=== PATIENT | female | born 1970 | race African-American/Black ===

== ENCOUNTER 2016-10-15 13:17 | Emergency (ER) | payer OTHER ==
[~2016-10-15] VITALS: Ht 157.5 cm; Wt 70.0 kg
[~2016-10-15 13:17] MED LIST: Z.0.NO CURRENT MEDS
[2016-10-15 14:04] VITALS: BP 128/71; PULSE 65; RESP 17; TEMP 98; O2SAT 100
[2016-10-15] MEDS ORDERED: SODIUM CHLORIDE 0.9% FLUSH 10 ML FLUSH IVF PRN (15:00)
--- NOTE | 2016-10-15 15:08 | PD ---
HPI Chief Complaint: chest pain Time Seen by Provider: 15:05 Travel History International Travel<30 days: No Contact w/Intl Traveler<30days: No History of Present Illness HPI Patient comes in complaining of right-sided chest pain that began after snorting and smoking cocaine along with taking Lortabs yesterday morning. Patient states she has done these drugs in the past, but has never had chest pain with it. Patient states pain is been constant since yesterday denies any radiation of pain. Denies anything making the pain better or worse. Denies any shortness of breath, nausea, abdominal pain, change in symptoms with eating , vomiting, back pain, numbness or tingling anywhere, headache,or loss change in bowel or bladder. [facility] Past Medical History Medical History: Denies Significant Hx Social History Alcohol Use: Yes (BEER EVERY WEEKEND) Tobacco Use: Yes (1/2 PACK DAILY X 13 YEARS) Substance Use: Yes (cocaine) Allergies-Medications (Allergen,Severity, Reaction): Coded Allergies: No Known Allergies (Verified , 08/06/15) Reported Meds & Prescriptions Reported Meds & Active Scripts Active Reported No Current Meds (Miscellaneous Medication) [facility] Review of Systems Except as stated in HPI: all other systems reviewed are Neg Physical Exam Narrative GENERAL: Well-developed, overly nourished, in no acute distress, and non-ill appearing. SKIN: Focused skin assessment warm and dry. HEAD: Atraumatic. Normocephalic. EYES: Pupils equal and round. EOMI. No scleral icterus. No injection or drainage. ENT: No nasal bleeding or discharge. Mucous membranes pink and moist. NECK: Trachea midline. Supple. No nuclear rigidity. CARDIOVASCULAR: Regular rate and rhythm. No murmur appreciated. RESPIRATORY: No accessory muscle use. No respiratory distress. Clear to auscultation. Breath sounds equal bilaterally. GASTROINTESTINAL: Abdomen soft, non-tender, nondistended, and no guarding. Hepatic and splenic margins not palpable. No pulsatile mass. MUSCULOSKELETAL: No obvious deformities. No clubbing. No cyanosis. No edema. Full range of motion. NEUROLOGICAL: Awake and alert. No obvious cranial nerve deficits. Motor grossly within normal limits. Normal speech. PSYCHIATRIC: Appropriate mood and affect; insight and judgment normal. Data Data Last Documented VS Vital Signs Date Time Temp Pulse Resp B/P Pulse Ox O2 Delivery O2 Flow Rate FiO2 8/7/17 14:04 98.0 65 17 128/71 100 Orders Electrocardiogram (10/15/16 14:51) Basic Metabolic Panel (Bmp) (10/15/16 14:51) Ckmb (Isoenzyme) Profile (10/15/16 14:51) Complete Blood Count With Diff (10/15/16 14:51) Magnesium (Mg) (10/15/16 14:51) Prothrombin Time / Inr (Pt) (10/15/16 14:51) Act Partial Throm Time (Ptt) (10/15/16 14:51) Troponin I (10/15/16 14:51) Chest, Single Ap (10/15/16 14:51) Ecg Monitoring (10/15/16 14:51) Bilateral Bp Monitoring (10/15/16 14:51) Iv Access Insert/Monitor (10/15/16 14:51) Oximetry (10/15/16 14:51) Oxygen Administration (10/15/16 14:51) Sodium Chloride 0.9% Flush (Ns Flush) (10/15/16 15:00) Aspirin Chew (Aspirin Chew) (10/15/16 15:15) CKMB (10/15/16 14:07) CKMB% (10/15/16 14:07) Labs Laboratory Tests Test 10/15/16 14:07 White Blood Count 4.6 TH/MM3 Red Blood Count 4.49 MIL/MM3 Hemoglobin 12.7 GM/DL Hematocrit 38.8 % Mean Corpuscular Volume 86.5 FL Mean Corpuscular Hemoglobin 28.3 PG Mean Corpuscular Hemoglobin 32.7 % Concent Red Cell Distribution Width 15.6 % Platelet Count 283 TH/MM3 Mean Platelet Volume 9.0 FL Neutrophils (%) (Auto) 72.7 % Lymphocytes (%) (Auto) 16.1 % Monocytes (%) (Auto) 7.6 % Eosinophils (%) (Auto) 2.6 % Basophils (%) (Auto) 1.0 % Neutrophils # (Auto) 3.4 TH/MM3 Lymphocytes # (Auto) 0.7 TH/MM3 Monocytes # (Auto) 0.4 TH/MM3 Eosinophils # (Auto) 0.1 TH/MM3 Basophils # (Auto) 0.0 TH/MM3 CBC Comment DIFF FINAL Differential Comment Prothrombin Time 10.4 SEC Prothromb Time International 0.9 RATIO Ratio Activated Partial 27.2 SEC Thromboplast Time Sodium Level 139 MEQ/L Potassium Level 3.7 MEQ/L Chloride Level 108 MEQ/L Carbon Dioxide Level 22.8 MEQ/L Anion Gap 8 MEQ/L Blood Urea Nitrogen 8 MG/DL Creatinine 0.88 MG/DL Estimat Glomerular Filtration 84 ML/MIN Rate Random Glucose 94 MG/DL Calcium Level 8.5 MG/DL Magnesium Level 2.1 MG/DL Total Creatine Kinase 163 U/L Creatine Kinase MB 1.3 NG/ML Troponin I LESS THAN 0.02 NG/ML MDM Medical Decision Making Medical Screen Exam Complete: Yes Emergency Medical Condition: Yes Interpretation(s) EKG reviewed by Dr. Willingham shows sinus rhythm with ventricular rate of 63. No STEMI. Chest x-ray by the radiologist shows: No acute disease. Differential Diagnosis Acute coronary syndrome, noncardiac chest pain, costochondritis, pneumonia, pneumothorax, other Narrative Course The patients chest pain by history and evaluation appears noncardiac, nor noncardiopulmonary in etiology. Evaluation revealed no evidence of cardiac involvement at this time. There is no clinical evidence to suggest thoracic aortic aneurysm or pathology, nor evidence to suggest pulmonary embolism, pericarditis, pneumothorax, nor pneumonia at this time. The patient has minimal risk factors for cardiac disease, pulmonary embolism or aortic disease. Clinical suspicion was discussed with patient and the patient was instructed to follow up with primary care provider for possible Cardiology outpatient evaluation. I discussed this management with the patient and the patient understands the importance or acute follow up with primary care provider. The patient was instructed to return at any time if chest pain recurs, persists, changes or worsens in anyway while awaiting follow up. The patient agreed with plan. Patient in no obvious distress upon re-evaluation. All pertinent laboratory/ Radiology result(s) discussed with patient. Discussed patient with Dr. Willingham prior to discharge, who is agreement with plan of care and disposition. Any questions/concerns in reference to patient diagnosis/condition discussed and clarified prior to patient's discharge. Reinforced sheer importance of close follow up with patient's primary physician or primary care clinic. Instructed patient to return to ED immediately, if symptoms return/worsen. Pt showed understanding of above instructions. Further instructions and recommendations were detailed in discharge paperwork. Pt ambulated without difficulty out of ED at discharge in police custody. Diagnosis Primary Impression: Non-cardiac chest pain Patient Instructions: General Instructions, Noncardiac Chest Pain (ED) Additional Instructions: Follow-up with your primary care physician this week for further evaluation. Use [id number] Tylenol and/or ibuprofen as needed for pain. Follow instructions on the packaging. Return to the emergency department if symptoms get worse. Disposition: [address] LAW ENFORCEMNT Condition: Stable Andrew Hughes Oct 15, 2016 15:08
[2016-10-15] MEDS ORDERED: ASPIRIN 81 MG CHEW TAB PO ONE (15:15)
[2016-10-15 15:28] LABS: AUTOMATED NEUTROPHIL # 3.4 TH/MM3 (1.8-7.7); EOSINOPHIL # 0.1 TH/MM3 (0-0.4); EOSINOPHIL % 2.6 % (0.0-4.0); HEMATOCRIT 38.8 % (35.0-46.0); HEMO FLAGS DIFF FINAL; LYMPH % 16.1 % (9.0-44.0); LYMPHOCYTE # 0.7 TH/MM3 (1.0-4.8); MEAN CELL VOLUME 86.5 FL (80.0-100.0); MEAN CORPUSCULAR HEMOGLOBIN 28.3 PG (27.0-34.0); MEAN CORPUSCULAR HGB CONC 32.7 % (32.0-36.0); MONO % 7.6 % (0.0-8.0); NEUT % 72.7 % (16.0-70.0); PLATELET COUNT 283 TH/MM3 (150-450); RED BLOOD COUNT 4.49 MIL/MM3 (4.00-5.30); RED CELL DISTRIBUTION WIDTH 15.6 % (11.6-17.2); WHITE BLOOD COUNT 4.6 TH/MM3 (4.0-11.0)
[2016-10-15 15:37] LABS: APTT (PATIENT) 27.2 SEC (24.3-30.1); INTERNATIONAL NORMALIZED RATIO 0.9 RATIO; PROTHROMBIN TIME - PATIENT 10.4 SEC (9.8-11.6)
[2016-10-15 15:50] LABS: ANION GAP 8 MEQ/L (5-15); BICARBONATE 22.8 MEQ/L (21.0-32.0); BLOOD UREA NITROGEN 8 MG/DL (7-18); CHLORIDE 108 MEQ/L (98-107); GLOMERULAR FILTRATION RATE 84 ML/MIN (>89); MAGNESIUM 2.1 MG/DL (1.5-2.5); POTASSIUM 3.7 MEQ/L (3.5-5.1); SODIUM (NA) 139 MEQ/L (136-145)
[2016-10-15 15:55] LABS: CREATINE KINASE 163 U/L (26-192)
[2016-10-15 16:08] LABS: CKMB 1.3 NG/ML (0.5-3.6)
--- NOTE | 2016-10-15 16:17 | RADRPT ---
EXAM DATE/TIME: 10/15/2016 15:16 [facility] COMPARISON: No previous studies available for comparison. INDICATIONS : Chest pain and shortness of breath. MEDICAL HISTORY : None. SURGICAL HISTORY : None. ENCOUNTER: Initial ACUITY: 1 day PAIN SCORE: 9/10 LOCATION: middle chest. FINDINGS: A single view of the chest demonstrates the lungs to be symmetrically aerated without evidence of mas s, infiltrate or effusion. The cardiomediastinal contours are unremarkable. Osseous structures are intact. CONCLUSION: No acute disease. Alexei Crockett MD FACR on October 15, 2016 at 16:15 Board Certified Radiologist. This report was verified electronically.
--- NOTE | 2016-10-16 15:47 | EKG ---
Date Performed: 10/15/2016 Time Performed: 15:47:33 PTAGE: 46 years EKG: Sinus rhythm POSSIBLE LEFT ATRIAL ENLARGEMENT BORDERLINE RIGHT AXIS DEVIATION NONSPECIFIC T-WAVE ABNORMALITY BORD JULIA ECG NO PREVIOUS TRACING DOCTOR: Tere Noble Interpretating Date/Time 10/16/2016 15:42:12
== END 2016-10-15 16:47 ==
LOC: NEDAMB 13:17
DX: R07.89 Other chest pain (principal); F14.10 Cocaine abuse, uncomplicated; F10.10 Alcohol abuse, uncomplicated; F17.290 Nicotine dependence, other tobacco product, uncomplicated
CPT/HCPCS: 71010; 80048; 82550; 82552; 83735; 84484; 85025; 85610; 85730; 93005; 99285